=== PATIENT | male | born 1955 | race Caucasian/White ===

== ENCOUNTER 2018-01-22 13:54 | Emergency (ER) | payer MEDICAID ==
[~2018-01-22] VITALS: Ht 180.3 cm; Wt 77.0 kg
[~2018-01-22 13:54] MED LIST: ALBU.5I NEB; ALBUAER3 INH; AMLO10TA2 PO; CHOL1CAP34 PO; HYDR-3583 PO; IPRA0.02 NEB; MELO15TA20 PO; POLY10O LEFT EYE; RANI150T PO; ROPI0.25 PO; TAMS0.4C4 PO; VOLT1GEL16; ZOFR4TAB PO
[2018-01-22] MEDS ORDERED: IOHEXOL 350 MG/ML 10 ML VIAL (for RAD DIAG) IVCONTRAST ONE (13:55)
[2018-01-22 14:06] VITALS: BP 204/94; PULSE 78; RESP 18; O2SAT 97
[2018-01-22] MEDS ORDERED: SODIUM CHLOR 0.9% 1000 ML INJ 1,000 ML IV SCH (14:19)
[2018-01-22 14:21] VITALS: O2SAT 94
[2018-01-22 14:22] VITALS: BP 201/109; PULSE 92; RESP 18; O2SAT 95
--- NOTE | 2018-01-22 14:27 | PD ---
HPI Chief Complaint: GI Complaint Time Seen by Provider: 14:10 Travel History International Travel<30 days: No Contact w/Intl Traveler<30days: No Traveled to known affect area: No History of Present Illness HPI The patient is a 62-year-old male who presents to the emergency department for nausea, vomiting, and abdominal pain. Patient states he was recently diagnosed with a lung infection and was placed on Levaquin by his primary physician, Dr. Alec fernando. The patient states he then developed some nausea followed by vomiting, and epigastric abdominal pain that radiates to left upper quadrant. He notes 2 days of increasing abdominal pain with persistent nausea despite using Zofran at home. He denies any diarrhea. He does have a history of reducible umbilical hernia but denies any previous history of abdominal surgeries. He denies any history of pancreatitis or biliary colic. He denies any associated fever, chills, or sweats. He does complain of dehydration with significant thirst. Symptoms are moderate. The patient also states he has some substernal chest pain earlier today, has had chest pain or last several days secondary to coughing. The chest pain is currently resolved. The chest pain was described as sharp and pleuritic. PFSH Past Medical History Bipolar Disorder: Yes COPD: Yes Diabetes: Yes Diminished Hearing: No Hypertension: Yes Immunizations Current: Yes ?: Not Past Surgical History Tonsillectomy: Yes Other Surgery: Yes (NASAL REPAIR) Social History Alcohol Use: No Tobacco Use: Yes (1 PPD) Substance Use: No Allergies-Medications (Allergen,Severity, Reaction): Coded Allergies: acetaminophen (Verified Allergy, Severe, UNKNOWN, 09/16/17) ciprofloxacin (Verified Allergy, Severe, UNKNOWN, 09/16/17) codeine (Verified Allergy, Severe, UNKNOWN, 09/16/17) penicillin G (Verified Allergy, Severe, UNKNOWN, 09/16/17) Reported Meds & Prescriptions Reported Meds & Active Scripts Active Zofran (Ondansetron HCl) 4 Mg Tab 4 Mg PO Q8HR PRN Ropinirole 0.25 Mg Tab 0.25 Mg PO HS Polytrim Opth Drops (Polymyxin/Trimethoprim Sulfate) 10,000-0.1 Unit/Ml-% Soln 1 Drop LEFT EYE Q6HR Reported Albuterol Neb (Albuterol Sulfate) 2.5 Mg/0.5 Ml Neb 2.5 Mg NEB Q4HR NEB PRN Note: The Albuterol Sulfate Inhalation Solution is concentrated and must be diluted. Read complete instructions carefully before using. Ipratropium Neb (Ipratropium Strong) 0.5 Mg/2.5 Ml Amp 0.5 Mg NEB Q4HR NEB PRN Vitamin D3 (Cholecalciferol) 50,000 Unit Cap 50,000 Units PO Q7D Tamsulosin (Tamsulosin HCl) 0.4 Mg Cap 0.4 Mg PO HS Voltaren (Diclofenac Sodium) 1 % Gel..gram. TID Hydrocodone-Acetaminophen 10-325 mg Tab 1 Tab PO Q8HR PRN Proair Hfa 8.5 GM Inh (Albuterol Sulfate) 90 Mcg/Act Aer 2 Puff INH Q4-6H PRN 108 mcg/actuation Meloxicam 15 Mg Tab 15 Mg PO DAILY Amlodipine (Amlodipine Besylate) 10 Mg Tab 10 Mg PO DAILY Ranitidine (Ranitidine HCl) 150 Mg Tab 150 Mg PO BID Review of Systems Except as stated in HPI: all other systems reviewed are Neg General / Constitutional: No: Fever HENT: Positive: Lightheadedness Cardiovascular: Positive: Chest Pain or Discomfort Respiratory: Positive: Cough, No: Shortness of Breath Gastrointestinal: Positive: Nausea, Vomiting, Abdominal Pain, No: Diarrhea Genitourinary: No: Dysuria Musculoskeletal: Positive: Weakness Neurologic: Positive: Weakness Physical Exam Narrative GENERAL: Awake, alert, pleasant 62-year-old male who appears his stated age and is in no acute respiratory distress. SKIN: Focused skin assessment warm/dry. HEAD: Atraumatic. Normocephalic. EYES: Pupils equal and round. No scleral icterus. No injection or drainage. ENT: No nasal bleeding or discharge. Dry mucous membranes. Breath smells of tobacco. NECK: Trachea midline. No JVD. CARDIOVASCULAR: Regular rate and rhythm. No murmur appreciated. Heart rate in the 90s. RESPIRATORY: No accessory muscle use. Clear to auscultation. Breath sounds equal bilaterally. GASTROINTESTINAL: Abdomen soft, reducible umbilical hernia. Mild epigastric to left upper quadrant tenderness. No guarding or rigidity. MUSCULOSKELETAL: No obvious deformities. No clubbing. No cyanosis. No edema. NEUROLOGICAL: Awake and alert. No obvious cranial nerve deficits. Motor grossly within normal limits. Normal speech. PSYCHIATRIC: Appropriate mood and affect; insight and judgment normal. Data Data Last Documented VS Vital Signs Date Time Temp Pulse Resp B/P (MAP) Pulse Ox O2 Delivery O2 Flow Rate FiO2 01/22/18 18:01 81 18 182/81 (114) 97 Room Air Orders Orders Complete Blood Count With Diff (01/22/18 14:19) Comprehensive Metabolic Panel (01/22/18 14:19) Lipase (01/22/18 14:19) Lactic Acid (01/22/18 14:19) Urinalysis - C+S If Indicated (01/22/18 14:19) Ct Abd/Pel W Iv Contrast(Rout) (01/22/18 14:19) Iv Access Insert/Monitor (01/22/18 14:19) Ecg Monitoring (01/22/18 14:19) Oximetry (01/22/18 14:19) Morphine Inj (Morphine Inj) (01/22/18 14:30) Sodium Chlor 0.9% 1000 Ml Inj (Ns 1000 M (01/22/18 14:19) Sodium Chloride 0.9% Flush (Ns Flush) (01/22/18 14:30) Electrocardiogram (01/22/18 14:19) Chest, Single Ap (01/22/18 14:19) Famotidine Inj (Pepcid Inj) (01/22/18 14:30) Troponin I (01/22/18 14:19) Creatine Kinase (Cpk) (01/22/18 14:19) Prochlorperazine Inj (Compazine Inj) (01/22/18 14:30) Iohexol 350 Inj (Omnipaque 350 Inj) (01/22/18 13:55) Us Abdomen Gallbladder (01/22/18 ) Ed Discharge Order (01/22/18 18:59) Morphine Inj (Morphine Inj) (01/22/18 19:00) Metoclopramide Inj (Reglan Inj) (01/22/18 19:00) Labs Laboratory Tests Test 01/22/18 14:20 01/22/18 17:50 White Blood Count 17.6 TH/MM3 Red Blood Count 4.88 MIL/MM3 Hemoglobin 14.1 GM/DL Hematocrit 41.4 % Mean Corpuscular Volume 84.8 FL Mean Corpuscular Hemoglobin 29.0 PG Mean Corpuscular Hemoglobin Concent 34.1 % Red Cell Distribution Width 13.8 % Platelet Count 173 TH/MM3 Mean Platelet Volume 8.9 FL Neutrophils (%) (Auto) 87.9 % Lymphocytes (%) (Auto) 6.6 % Monocytes (%) (Auto) 4.3 % Eosinophils (%) (Auto) 0.8 % Basophils (%) (Auto) 0.4 % Neutrophils # (Auto) 15.5 TH/MM3 Lymphocytes # (Auto) 1.2 TH/MM3 Monocytes # (Auto) 0.8 TH/MM3 Eosinophils # (Auto) 0.1 TH/MM3 Basophils # (Auto) 0.1 TH/MM3 CBC Comment DIFF FINAL Differential Comment Blood Urea Nitrogen 33 MG/DL Creatinine 1.26 MG/DL Random Glucose 152 MG/DL Total Protein 7.9 GM/DL Albumin 3.5 GM/DL Calcium Level 8.6 MG/DL Alkaline Phosphatase 93 U/L Aspartate Amino Transf (AST/SGOT) 36 U/L Alanine Aminotransferase (ALT/SGPT) 39 U/L Total Bilirubin 0.7 MG/DL Sodium Level 141 MEQ/L Potassium Level 4.8 MEQ/L Chloride Level 107 MEQ/L Carbon Dioxide Level 26.1 MEQ/L Anion Gap 8 MEQ/L Estimat Glomerular Filtration Rate 58 ML/MIN Lactic Acid Level 0.8 mmol/L Total Creatine Kinase 107 U/L Troponin I LESS THAN 0.02 NG/ML Lipase 115 U/L Urine Color YELLOW Urine Turbidity CLEAR Urine pH 6.0 Urine Specific [place] 1.048 Urine Protein 300 mg/dL Urine Glucose (UA) NEG mg/dL Urine Ketones NEG mg/dL Urine Occult Blood TRACE Urine Nitrite NEG Urine Bilirubin NEG Urine Urobilinogen LESS THAN 2.0 MG/DL Urine Leukocyte Esterase NEG Urine RBC 4 /hpf Urine WBC 1 /hpf Microscopic Urinalysis Comment CULT NOT INDICATED MDM Medical Decision Making Medical Screen Exam Complete: Yes Emergency Medical Condition: Yes Medical Record Reviewed: Yes Interpretation(s) EKG reveals normal sinus rhythm with a rate of [address] changes. Q- wave noted in lead V3. Last Impressions Chest X-Ray 01/22/181418 Signed Impressions: CONCLUSION: No acute disease. Abdomen/Pelvis CT 01/22/181418 Signed Impressions: CONCLUSION: 1. Cholelithiasis with a well distended gallbladder but no CT findings to sugg est an acute inflammatory process. Ultrasound is more sensitive for detecting t his and could be performed to further evaluate if clinically warranted. 2. 7 mm nonobstructing right renal stone. 3. Cirrhosis. Gall Bladder Ultrasound 01/22/18 0000 Signed Impressions: CONCLUSION: 1. Mild hepatomegaly with heterogeneous echotexture characteristic of either c hronic liver disease or steatosis. 2. Cholelithiasis 3. Distended common bile duct 4. Right nephrolithiasis. Laboratory Tests Test 01/22/18 14:20 01/22/18 17:50 White Blood Count 17.6 TH/MM3 Red Blood Count 4.88 MIL/MM3 Hemoglobin 14.1 GM/DL Hematocrit 41.4 % Mean Corpuscular Volume 84.8 FL Mean Corpuscular Hemoglobin 29.0 PG Mean Corpuscular Hemoglobin Concent 34.1 % Red Cell Distribution Width 13.8 % Platelet Count 173 TH/MM3 Mean Platelet Volume 8.9 FL Neutrophils (%) (Auto) 87.9 % Lymphocytes (%) (Auto) 6.6 % Monocytes (%) (Auto) 4.3 % Eosinophils (%) (Auto) 0.8 % Basophils (%) (Auto) 0.4 % Neutrophils # (Auto) 15.5 TH/MM3 Lymphocytes # (Auto) 1.2 TH/MM3 Monocytes # (Auto) 0.8 TH/MM3 Eosinophils # (Auto) 0.1 TH/MM3 Basophils # (Auto) 0.1 TH/MM3 CBC Comment DIFF FINAL Differential Comment Blood Urea Nitrogen 33 MG/DL Creatinine 1.26 MG/DL Random Glucose 152 MG/DL Total Protein 7.9 GM/DL Albumin 3.5 GM/DL Calcium Level 8.6 MG/DL Alkaline Phosphatase 93 U/L Aspartate Amino Transf (AST/SGOT) 36 U/L Alanine Aminotransferase (ALT/SGPT) 39 U/L Total Bilirubin 0.7 MG/DL Sodium Level 141 MEQ/L Potassium Level 4.8 MEQ/L Chloride Level 107 MEQ/L Carbon Dioxide Level 26.1 MEQ/L Anion Gap 8 MEQ/L Estimat Glomerular Filtration Rate 58 ML/MIN Lactic Acid Level 0.8 mmol/L Total Creatine Kinase 107 U/L Troponin I LESS THAN 0.02 NG/ML Lipase 115 U/L Urine Color YELLOW Urine Turbidity CLEAR Urine pH 6.0 Urine Specific [place] 1.048 Urine Protein 300 mg/dL Urine Glucose (UA) NEG mg/dL Urine Ketones NEG mg/dL Urine Occult Blood TRACE Urine Nitrite NEG Urine Bilirubin NEG Urine Urobilinogen LESS THAN 2.0 MG/DL Urine Leukocyte Esterase NEG Urine RBC 4 /hpf Urine WBC 1 /hpf Microscopic Urinalysis Comment CULT NOT INDICATED Differential Diagnosis Differential diagnosis includes peptic ulcer disease, gastritis, partial small bowel obstruction, ileus, pancreatitis, inferior myocardial infarction, choledocholithiasis, cholecystitis, dehydration, electrolyte abnormality, medication side effect. Narrative Course IV was established, labs are drawn and sent, and the patient was placed cardiac telemetry monitoring and continuous pulse oximetry monitoring. EKG was ordered and interpreted. Chest x-ray is obtained. The patient was administer Compazine , morphine, Pepcid, and IV fluids. CT of the abdomen and pelvis with IV contrast was obtained. CT reveals distended gallbladder. Therefore, ultrasound was ordered. LFTs and lipase are unremarkable, I doubt obstructive pathology such as choledocholithiasis. Ultrasound does reveal a biliary stone, slightly dilated common bile duct, but no visible stone. The patient was reevaluated, he has minimal pain and nausea has resolved. The patient may have symptomatic cholelithiasis versus gastritis, is advised to follow-up with his primary physician on an outpatient basis. He will be provided a copy of his CT results and lab results at discharge. Return if symptoms worsen or progress. Diagnosis Primary Impression: Abdominal pain Qualified Codes: R10.13 - Epigastric pain Additional Impression: Symptomatic cholelithiasis Patient Instructions: General Instructions Additional Instructions: Medications as directed. Please provide the patient a copy of his CT results, ultrasound results, and lab results at discharge. Follow-up with her primary physician. Return if symptoms worsen or progress. Med/Other Pt SpecificInfo: Prescription(s) given Scripts Promethazine (Phenergan) 25 Mg Tablet 25 MG PO Q6H Y for NAUSEA OR VOMITING, #12 TAB 0 Refills Prov: Nash Prince MD 01/22/18 Hydrocodone-Acetaminophen ([place]) 5 Mg-325 Mg Tab 1 TAB PO Q6H Y for PAIN, #12 TAB 0 Refills Prov: Nash Prince MD 01/22/18 Disposition: 01 DISCHARGE HOME Condition: Stable Nash Prince MD January 22, 2018 14:27
[2018-01-22] MEDS ORDERED: PROCHLORPERAZINE INJ 10 MG/2 ML VIAL IV PUSH ONE (14:30)
[2018-01-22] MEDS ORDERED: FAMOTIDINE 20 MG/2 ML VIAL IV PUSH ONE (14:30)
[2018-01-22] MEDS ORDERED: MORPHINE SULFATE 4 MG/ML INJ IV PUSH ONE ×2 (14:30→19:00)
[2018-01-22] MEDS ORDERED: SODIUM CHLORIDE 0.9% FLUSH 10 ML FLUSH IV FLUSH PRN (14:30)
[2018-01-22 14:44] LABS: AUTOMATED NEUTROPHIL # 15.5 TH/MM3 (1.8-7.7); BASOPHIL # 0.1 TH/MM3 (0-0.2); BASOPHIL % 0.4 % (0.0-2.0); EOSINOPHIL # 0.1 TH/MM3 (0-0.4); EOSINOPHIL % 0.8 % (0.0-4.0); HEMATOCRIT 41.4 % (39.0-51.0); HEMOGLOBIN 14.1 GM/DL (13.0-17.0); LYMPH % 6.6 % (9.0-44.0); LYMPHOCYTE # 1.2 TH/MM3 (1.0-4.8); MEAN CELL VOLUME 84.8 FL (80.0-100.0); MEAN CORPUSCULAR HGB CONC 34.1 % (32.0-36.0); MEAN PLATELET VOLUME 8.9 FL (7.0-11.0); MONO % 4.3 % (0.0-8.0); MONOCYTE # 0.8 TH/MM3 (0-0.9); NEUT % 87.9 % (16.0-70.0); PLATELET COUNT 173 TH/MM3 (150-450); RED BLOOD COUNT 4.88 MIL/MM3 (4.50-5.90); RED CELL DISTRIBUTION WIDTH 13.8 % (11.6-17.2); WHITE BLOOD COUNT 17.6 TH/MM3 (4.0-11.0)
[2018-01-22 14:59] LABS: ALBUMIN 3.5 GM/DL (3.4-5.0); ALT (GPT) 39 U/L (12-78); AST (GOT) 36 U/L (15-37); BICARBONATE 26.1 MEQ/L (21.0-32.0); BLOOD UREA NITROGEN 33 MG/DL (7-18); CALCIUM 8.6 MG/DL (8.5-10.1); CHLORIDE 107 MEQ/L (98-107); CREATININE 1.26 MG/DL (0.60-1.30); GLOMERULAR FILTRATION RATE 58 ML/MIN (>89); GLUCOSE,RANDOM 152 MG/DL (74-106); SODIUM (NA) 141 MEQ/L (136-145)
[2018-01-22 15:00] VITALS: BP 215/104; PULSE 88; RESP 18; O2SAT 96
[2018-01-22 15:03] LABS: ALKALINE PHOSPHATASE 93 U/L (45-117); TOTAL BILIRUBIN ADULT 0.7 MG/DL (0.2-1.0); TOTAL PROTEIN 7.9 GM/DL (6.4-8.2); TROPONIN I LESS THAN 0.02 NG/ML (0.02-0.05)
--- NOTE | 2018-01-22 15:18 | RADRPT ---
EXAM DATE: 01/22/2018 2:56 PM EDT AGE/SEX: 62 years / Male INDICATIONS: Cough and chest pain. CLINICAL DATA: This is the patient's initial encounter. Patient reports that signs and symptoms have been present for 2 days and indicates a pain score of 7/10. MEDICAL/SURGICAL HISTORY: Chronic obstructive pulmonary disease. None. COMPARISON: None. FINDINGS: A single AP view of the chest demonstrates the lungs to be symmetrically aerated without evidence of mass, infiltrate or effusion. The cardiomediastinal contours are unremarkable. Osseous structures a re intact. CONCLUSION: No acute disease. Electronically signed by: Brien Pereira MD 01/22/2018 3:17 PM EDT
--- NOTE | 2018-01-22 16:04 | RADRPT ---
EXAM DATE: 01/22/2018 3:50 PM EDT AGE/SEX: 62 years / Male INDICATIONS: Nausea, vomiting and diarrhea. CLINICAL DATA: This is the patient's initial encounter. Patient reports that signs and symptoms have been present for 2 days and indicates a pain score of 2/10. MEDICAL/SURGICAL HISTORY: Hypertension. Diabetes. None. ORAL CONTRAST: No oral contrast ingested. RADIATION DOSE: 7.82 CTDI (mGy) COMPARISON: None. TECHNIQUE: Multiple contiguous axial images were obtained through the abdomen and pelvis following b olus infusion of 100 ml Omnipaque 350 (iohexol) nonionic water-soluble contrast as a single exam do se. No oral contrast ingested. Using automated exposure control and adjustment of the mA and/or kV a ccording to patient size, the radiation dose was kept as low as reasonably achievable to obtain optim al diagnostic quality images. FINDINGS: Lower Lungs: The visualized lower lungs are clear. Liver: The liver has a homogeneous density without space-occupying lesion. There is lobulation of the contour and enlargement of the caudate lobe. There is no dilation of the biliary tree. A solitary ca lcified gallstone within a well distended gallbladder. No gallbladder wall thickening or surrounding inflammatory change. No pericholecystic fluid. Spleen: Homogeneous density without enlargement. Pancreas: Unremarkable without mass or calcification. Kidneys: Normal in size and shape. There is a 7 mm nonobstructing right lower pole renal stone. No e vidence of mass or hydronephrosis. Adrenal Glands: Unremarkable. Aorta: Diffuse calcified and noncalcified atheromatous plaque throughout the aorta and its major br anches. No aneurysmal change.. Bowel/Mesentery: The bowel loops are grossly unremarkable. The cecum and sigmoid colon have a normal configuration. Abdominal Wall: Intact. Retroperitoneum: No evidence of adenopathy in the retrocrural, para-aortic, or deep pelvic regions. Bladder: Contours are smooth. Reproductive Organs: No abnormal masses or calcifications seen. Inguinal: The inguinal region is unremarkable without evidence of adenopathy. Bony Structures: A degenerative lumbar spine.. CONCLUSION: 1. Cholelithiasis with a well distended gallbladder but no CT findings to suggest an acute inflammat ory process. Ultrasound is more sensitive for detecting this and could be performed to further evalua te if clinically warranted. 2. 7 mm nonobstructing right renal stone. 3. Cirrhosis. Electronically signed by: Brien Pereira MD 01/22/2018 4:03 PM EDT
[2018-01-22 16:12] VITALS: BP 196/84; PULSE 72; RESP 18; O2SAT 97
[2018-01-22 18:01] VITALS: BP 182/81; PULSE 81; RESP 18; O2SAT 97
[2018-01-22 18:17] LABS: BILIRUBIN, URINE NEG (NEG); BLOOD, URINE TRACE (NEG); GLUCOSE,URINE NEG (NEG); KETONE, URINE NEG (NEG); NITRITE,URINE NEG (NEG); URINE COLOR YELLOW (YELLW/STRAW); URINE LEUKOCYTE ESTERASE NEG (NEG)
--- NOTE | 2018-01-22 18:45 | RADRPT ---
EXAM DATE: 01/22/2018 6:36 PM EDT AGE/SEX: 62 years / Male INDICATIONS: Right upper quadrant pain. Nausea and vomiting. CLINICAL DATA: This is the patient's initial encounter. Patient reports that signs and/or symptoms h ave been present for 1 day and indicates a pain score of 8/10. MEDICAL/SURGICAL HISTORY: Chronic obstructive pulmonary disease. Diabetes. Hypertension. . COMPARISON: No prior [facility] exams available for comparison MEASUREMENTS (cm x cm x cm): Liver:__ 18.7 cm length Common Bile Duct:__ 9mm FINDINGS: Liver: The liver demonstrates a heterogeneous hyperechoic texture. There are no focal lesions or kaylen dence of intrahepatic biliary duct dilatation. Liver is mildly enlarged. Portal Vein: Hepatofugal flow seen in portal vein. Common Duct: Common bile duct is mildly dilated. Gallbladder: Large mobile stone is identified in the gallbladder. Pancreas: The visualized portions are within normal limits Right Kidney: 1.4 mm hypoechoic structure in the lower pole is characteristic of nephrolithiasis. Other: None. CONCLUSION: 1. Mild hepatomegaly with heterogeneous echotexture characteristic of either chronic liver disease o r steatosis. 2. Cholelithiasis 3. Distended common bile duct 4. Right nephrolithiasis. Electronically signed by: Lane Prajapati MD 01/22/2018 6:44 PM EDT
[2018-01-22] MEDS ORDERED: METOCLOPRAMIDE HCL 10 MG/2 ML VIAL IV PUSH ONE (19:00)
[2018-01-22] MEDS ORDERED: PROM25TA10 PO (19:06)
[2018-01-22] MEDS ORDERED: NORC5TAB PO (19:06)
--- NOTE | 2018-01-23 14:31 | EKG ---
Date Performed: 01/22/2018 Time Performed: 14:23:02 PTAGE: 62 years EKG: Sinus rhythm MARKED LEFT AXIS DEVIATION MINIMAL ST DEPRESSION ABNORMAL ECG Compared to PREVIOUS TRACING , ST changes inferiorly slightly more prominent, otherwise no significan t change. PREVIOUS TRACIN05/27/2009 09.52 DOCTOR: Wan Gray Interpretating Date/Time 01/23/2018 14:29:54
== END 2018-01-22 19:28 | disposition home or self-care (01) ==
LOC: NEPE 13:54
DX: K80.20 Calculus of gallbladder without cholecystitis without obstruction (principal); N20.0 Calculus of kidney; K74.60 Unspecified cirrhosis of liver; F17.200 Nicotine dependence, unspecified, uncomplicated; I10 Essential (primary) hypertension
CPT/HCPCS: 71045; 74177; 76705; 80053; 81001; 82550; 83605; 83690; 84484; 85025; 93005; 96361; 96374; 96375; 96376; 99285; J0780; J2270; J2765; J7030; Q9967